=== PATIENT | male | born 1985 | race Caucasian/White ===

== ENCOUNTER 2022-11-05 09:01 | Day surgery (SDC) | payer BC ==
[2022-11-05] VITALS (12 sets, daily range): BP systolic 102–125; BP diastolic 45–64; PULSE 61–83; TEMP 97.8
[~2022-11-05] VITALS: Ht 180.3 cm; Wt 123.9 kg
[2022-11-05 09:46] LABS: HEMATOCRIT 47.3 % (42.0-52.0); HEMOGLOBIN 16.2 g/dl (13.5-18.0); MEAN CELL VOLUME 90 fl (80.0-100.0); MEAN CORPUSCULAR HEMOGLOBIN 31 pg (27-31); MEAN CORPUSCULAR HGB CONC 34 g/dl (33.0-37.0); MEAN PLATELET VOLUME 10.6 fl (7.4-10.4); PLATELET COUNT 270 K/mm3 (130-400); RED BLOOD COUNT 5.26 M/mm3 (4.20-5.60); REDCELL DISTRIBUTION WIDTH-CV 12.1 % (11.5-14.5)
[2022-11-05] MEDS ORDERED: ASPIRIN 81M81 MG/TA2 PO (09:52)
[2022-11-05] MEDS ORDERED: ZOCOR 40MG40 MG PO (09:53)
[2022-11-05] MEDS ORDERED: GLUCOPHAGE1000 MG PO (09:53)
[2022-11-05] MEDS ORDERED: PRINIVIL10 MG (09:54)
[2022-11-05] MEDS ORDERED: JARDIANCE25 (09:55)
[2022-11-05 09:57] LABS: CREATININE, serum 0.82 mg/dL (0.72-1.25); POTASSIUM 4.8 mmol/L (3.5-4.5)
[2022-11-05 09:58] LABS: INR 1.1 (0.8-3.0); PROTHROMBIN TIME 12.1 SECONDS (9.7-12.8)
--- NOTE | 2022-11-05 11:50 | NUR ---
PT RETURNED FROM [employer]. TR BAND IN PLACE, LIMB WARM AND SOFT, DRESSING CLEAN AND DRY. DISCUSSED EDUCATION ON TR BAND AND PLAN. ARM PROPPED ON PILLOW. PT OFFERED DRINK AND ORDERED LUNCH. VITALS OBTAINED.
--- NOTE | 2022-11-05 12:30 | NUR ---
PT RESTING COMFORTABLY. TR BAND STILL AT 11MLS OF AIR. CLEAN AND DRY.
--- NOTE | 2022-11-05 15:15 | NUR ---
BEGAN RELEASING AIR 2 MLS AT A TIME AT 1345. COMPLETED THE 11MLS OF AIR AT 1500. SITE C/D/I. PT AND STATE UNDERSTANDING OF DISCHARGE INSTRUCTIONS. IV REMOVED, TR BAND REMOVED, CLEANED AND REPLACED LOOSELY OVER BANDAID ON RIGHT WRIST. PULSES 2+ ON ALL EXTREMEITIES. RESPS EVEN AND UNLABORED. PT DRESSED AND VOIDED. WHEELED TO FRONT ENTRANCE. TO DRIVE HOME.
== END 2022-11-05 13:30 | disposition home or self-care (01) ==
LOC: COL.CAR 09:01
PROVIDERS: Internal Medicine Cardiovascular Disease
DX: I35.2 Nonrheumatic aortic (valve) stenosis with insufficiency (principal); E78.2 Mixed hyperlipidemia; I10 Essential (primary) hypertension; G47.33 Obstructive sleep apnea (adult) (pediatric); Z79.899 Other long term (current) drug therapy; Z87.891 Personal history of nicotine dependence
CPT/HCPCS: C1769; C1887; J1644; J2250; J2704; J3010; Q9967